=== PATIENT | female | born 1950 | race Caucasian/White ===

== ENCOUNTER → 2023-09-18 15:24 | Outpatient (REF) | payer MEDICARE, OTHER, SELFPAY | LOC: WDC 15:24 | PROVIDERS: ATTENDING PHYSICIAN Nurse Practitioner | DX: Z12.31 Encounter for screening mammogram for malignant neoplasm of breast (principal) | CPT/HCPCS: 77063; 77067 ==

== ENCOUNTER → 2025-01-01 09:33 | Outpatient (REF) | payer MEDICARE, OTHER, SELFPAY ==
[2025-01-01 10:32] LABS: Hematocrit 38.7 % (37.0-47.0); Hemoglobin 13.2 g/dL (12.0-16.0); Mean Corp Hgb Conc. 34.1 g/dL (33.0-37.0); Mean Corpuscular Volume 93.7 fL (81.0-99.0); Nucleated Red Blood Cells % 0 %; Platelet Count 211 10^3/uL (130-400); Red Cell Dist. Width 12.7 % (11.5-14.5)
[2025-01-01 10:40] LABS: INR 0.97; PT 13.4 Sec (11.4-14.6)
[2025-01-01 10:41] LABS: APTT 26.3 Sec (23.4-35.0)
[2025-01-01 10:44] LABS: ALT (SGPT) 22 U/L (0-35); AST (SGOT) 31 U/L (14-36); Albumin 5.0 g/dl (3.5-5.0); Alkaline Phosphatase 68 U/L (38-126); Blood Urea Nitrogen 20 mg/dl (7-17); Calcium 9.9 mg/dl (8.4-10.2); Carbon Dioxide 28 mmol/L (22-30); Chloride 102 mmol/L (98-107); Glucose 97 mg/dl (70-99); HDL Cholesterol 106 mg/dl; LDL Cholesterol, Calculated 131 mg/dl; Potassium 5.4 mmol/L (3.5-5.1); Sodium 135 mmol/L (135-145); Total Protein 7.5 g/dl (6.3-8.2); Very Low Density Lipoprotein 11 mg/dl (0-30); eGFR > 60.00
[2025-01-01 11:14] LABS: TSH 1.97 uIU/ml (0.47-4.68)
== END ==
LOC: RCS 09:33
PROVIDERS: ATTENDING PHYSICIAN Plastic Surgery; FAMILY PHYSICIAN Nurse Practitioner
DX: Z00.00 Encounter for general adult medical examination without abnormal findings (principal); I10 Essential (primary) hypertension; F51.01 Primary insomnia; E78.5 Hyperlipidemia, unspecified; Z01.812 Encounter for preprocedural laboratory examination
CPT/HCPCS: 36415; 80053; 80061; 84443; 85025; 85610; 85730; 93005

== ENCOUNTER → 2025-02-09 13:08 | Outpatient (REF) | payer MEDICARE, OTHER, SELFPAY ==
[2025-02-09 15:01] LABS: ALT (SGPT) 16 U/L (0-35); AST (SGOT) 23 U/L (14-36); Albumin 4.7 g/dl (3.5-5.0); Alkaline Phosphatase 64 U/L (38-126); Blood Urea Nitrogen 23 mg/dl (7-17); Calcium 9.8 mg/dl (8.4-10.2); Carbon Dioxide 27 mmol/L (22-30); Chloride 100 mmol/L (98-107); Glucose 86 mg/dl (70-99); Potassium 4.5 mmol/L (3.5-5.1); Sodium 133 mmol/L (135-145); Total Protein 7.6 g/dl (6.3-8.2); eGFR 53.06
== END ==
LOC: RAD 13:08
PROVIDERS: ATTENDING PHYSICIAN Nurse Practitioner
DX: G57.92 Unspecified mononeuropathy of left lower limb (principal); R22.42 Localized swelling, mass and lump, left lower limb; E87.5 Hyperkalemia
CPT/HCPCS: 36415; 80053; 93971